=== PATIENT | female | born 1955 | race Two or more races ===

== ENCOUNTER 2022-04-11 05:46 | Day surgery (SDC) | payer OTHER ==
[~2022-04-11 05:46] MED LIST: GLIPIZIDE XL10 MG PO; LEVOTHYROXINE25 MCG PO; METFORMIN HCL1000 M2 PO; ZESTRIL20 MG PO
[2022-04-11] MEDS ORDERED: MACROBID 100 M100 MG PO (10:02)
[2022-04-11] MEDS ORDERED: TRAM1TAB98 PO (10:03)
== END 2022-04-11 13:00 | disposition home or self-care (01) ==
LOC: CIR.AMB 05:46
PROVIDERS: ATTEND Obstetrics & Gynecology Gynecology
DX: N81.11 Cystocele, midline (principal); Z88.1 Allergy status to other antibiotic agents; N81.6 Rectocele; N81.5 Vaginal enterocele; N81.83 Incompetence or weakening of rectovaginal tissue; N39.3 Stress incontinence (female) (male); I10 Essential (primary) hypertension; E11.9 Type 2 diabetes mellitus without complications; E03.9 Hypothyroidism, unspecified